=== PATIENT | female | born 1970 | race Caucasian/White ===

== ENCOUNTER 2021-02-19 01:47 | Emergency (ER) | payer MEDICAID ==
[~2021-02-19] VITALS: Ht 157.5 cm; Wt 113.9 kg
[2021-02-19 02:03] VITALS: BP_SYST 118
[2021-02-19] MEDS ORDERED: MORPHINE 4 MG INJ. 4 MG/ML VIAL IVP ONE (02:30)
[2021-02-19 02:49] LABS: BASOPHILS # (AUTO) 0.1 K/uL (0.0-0.2); BASOPHILS % (AUTO) 0.5 % (0.0-2.0); EOSINOPHILS # (AUTO) 0.1 K/uL (0.0-0.4); EOSINOPHILS % (AUTO) 0.7 % (0.0-4.0); HEMATOCRIT 43.6 % (36-48); HEMOGLOBIN 14.2 g/dL (12.0-16.0); LYMPHOCYTES # (AUTO) 3.4 K/uL (1.0-5.5); LYMPHOCYTES % (AUTO) 25.7 % (20.5-51.5); MEAN CORPUSCULAR HEMOGLOBIN 28 pg (27-31); MEAN CORPUSCULAR HGB CONC 33 % (32-36); MEAN CORPUSCULAR VOLUME 85 fL (79.0-98.0); MONOCYTES # (AUTO) 0.9 K/uL (0.0-1.0); MONOCYTES % (AUTO) 6.8 % (1.7-9.3); NEUTROPHILS # (AUTO) 8.7 K/uL (1.8-7.7); NEUTROPHILS % (AUTO) 66.3 % (40.0-70.0); PLATELET COUNT (AUTO) 204 K/uL (130-430); RED BLOOD CELL COUNT(AUTO) 5.12 MIL/uL (4.2-6.2); RED CELL DISTRIBUTION WIDTH 14.4 % (9.0-15.0); WHITE BLOOD COUNT (AUTO) 13.2 K/uL (4.8-10.8)
[2021-02-19 03:01] LABS: CALCIUM 8.8 mg/dL (8.4-11.0); CREATININE 0.72 mg/dL (0.55-1.30); POTASSIUM 3.4 mmol/L (3.5-5.1)
[2021-02-19 03:12] LABS: ALBUMIN 3.1 g/dL (3.4-4.8); TOTAL BILIRUBIN 0.5 mg/dL (0.0-1.0)
[2021-02-19] MEDS ORDERED: HYDR-3917 PO (05:16)
[2021-02-19] MEDS ORDERED: AMOX-426 PO (05:16)
[2021-02-19 05:33] VITALS: BP_SYST 118
== END 2021-02-19 05:38 | disposition home or self-care (01) ==
LOC: SED 01:47
DX: K57.92 Diverticulitis of intestine, part unspecified, without perforation or abscess without bleeding (principal); Z79.899 Other long term (current) drug therapy
CPT/HCPCS: 36415; 74176; 76376; 80053; 83690; 84702; 85025; 96374; 99284; J2270

== ENCOUNTER 2021-04-03 20:32 | Emergency (ER) | payer MEDICAID, SELFPAY ==
[~2021-04-03] VITALS: Ht 162.6 cm; Wt 113.4 kg
[~2021-04-03 20:32] MED LIST: AMOX-426 PO; HYDR-3917 PO
[2021-04-03 20:58] VITALS: BP_SYST 152
--- NOTE | 2021-04-03 20:58 | NUR ---
Patient to ER TENT for evaluation. WILL ASSUME CARE OF PATIENT
--- NOTE | 2021-04-03 21:07 | NUR ---
ER at bedside examining patient.
--- NOTE | 2021-04-03 21:15 | NUR ---
Pt BIB family to ED C/O fever cough congestion sore throat the last 2 days patient has not been vaccinated against against Covid she has history of COPD has not been tested for Covid before no chest pain
[2021-04-03] MEDS ORDERED: ALBU8.5H8 INH (22:06)
[2021-04-03] MEDS ORDERED: ZIT250 PO (22:06)
[2021-04-03] MEDS ORDERED: PSEU30TA36 PO (22:06)
[2021-04-03] MEDS ORDERED: PRED20TA PO (22:06)
[2021-04-03 22:22] VITALS: BP_SYST 146
--- NOTE | 2021-04-03 22:22 | NUR ---
Patient given written and verbal discharge instructions and verbalizes understanding. ER MD discussed with patient the results and treatment provided. Patient in stable condition. ID arm band removed. Patient educated on pain management and to follow up with PMD. Pain Scale 0/10 Opportunity for questions provided and answered.
== END 2021-04-03 22:22 | disposition home or self-care (01) ==
LOC: SED 20:32
DX: J40 Bronchitis, not specified as acute or chronic (principal); Z20.822 Contact with and (suspected) exposure to COVID-19
CPT/HCPCS: 36415; 71045; 86710; 99284

== ENCOUNTER 2021-04-25 13:16 | Emergency (ER) | payer MEDICAID, SELFPAY ==
[~2021-04-25] VITALS: Ht 162.6 cm; Wt 113.9 kg
[~2021-04-25 13:16] MED LIST changes: +ALBU8.5H8 INH; +PRED20TA PO; +PSEU30TA36 PO; +ZIT250 PO
[2021-04-25 13:50] VITALS: BP_SYST 151
--- NOTE | 2021-04-25 13:50 | NUR ---
Patient to ER tent for evaluation.
--- NOTE | 2021-04-25 13:50 | NUR ---
pt. camr in with c/o congestion, cough and body aches 10/10, states productive cough with green sputum
--- NOTE | 2021-04-25 16:20 | NUR ---
ER at bedside examining patient in tent.
[2021-04-25] MEDS ORDERED: PRED20TA PO (17:07)
[2021-04-25] MEDS ORDERED: IBUP-1969 PO (17:08)
[2021-04-25] MEDS ORDERED: TRAM50TA2 PO (17:08)
--- NOTE | 2021-04-25 17:23 | NUR ---
Patient given written and verbal discharge instructions and verbalizes understanding. ER Dr. Kauffman discussed with patient the results and treatment provided. Patient in stable condition. ID arm band removed. Rx of Ibuprofen, prednisone, anf tyelenol given. Patient educated on pain management and to follow up with PMD. Pain Scale 7. Opportunity for questions provided and answered. Medication side effect fact sheet provided.
[2021-04-25 17:25] VITALS: BP_SYST 139
== END 2021-04-25 17:25 | disposition home or self-care (01) ==
LOC: SED 13:16
DX: U07.1 COVID-19 (principal); J12.82 Pneumonia due to coronavirus disease 2019; J44.9 Chronic obstructive pulmonary disease, unspecified; E11.9 Type 2 diabetes mellitus without complications; Z79.899 Other long term (current) drug therapy
CPT/HCPCS: 36415; 71045; 86710; 99284

== ENCOUNTER 2021-09-08 11:57 | Emergency (ER) | payer MEDICAID ==
[~2021-09-08] VITALS: Ht 162.6 cm; Wt 117.9 kg
[~2021-09-08 11:57] MED LIST changes: +IBUP-1969 PO; +TRAM50TA2 PO
[2021-09-08 12:07] VITALS: BP_SYST 141
[2021-09-08 13:58] LABS: BASOPHILS # (AUTO) 0.1 K/uL (0.0-0.2); BASOPHILS % (AUTO) 0.7 % (0.0-2.0); EOSINOPHILS # (AUTO) 0.1 K/uL (0.0-0.4); EOSINOPHILS % (AUTO) 0.7 % (0.0-4.0); HEMATOCRIT 45.7 % (36-48); HEMOGLOBIN 15.1 g/dL (12.0-16.0); LYMPHOCYTES # (AUTO) 3.2 K/uL (1.0-5.5); LYMPHOCYTES % (AUTO) 30.6 % (20.5-51.5); MEAN CORPUSCULAR HEMOGLOBIN 27 pg (27-31); MEAN CORPUSCULAR HGB CONC 33 % (32-36); MEAN CORPUSCULAR VOLUME 83 fL (79.0-98.0); MONOCYTES # (AUTO) 0.6 K/uL (0.0-1.0); MONOCYTES % (AUTO) 6.1 % (1.7-9.3); NEUTROPHILS # (AUTO) 6.5 K/uL (1.8-7.7); NEUTROPHILS % (AUTO) 61.9 % (40.0-70.0); PLATELET COUNT (AUTO) 192 K/uL (130-430); RED BLOOD CELL COUNT(AUTO) 5.53 MIL/uL (4.2-6.2); RED CELL DISTRIBUTION WIDTH 15.1 % (9.0-15.0); WHITE BLOOD COUNT (AUTO) 10.5 K/uL (4.8-10.8)
[2021-09-08 14:22] LABS: CALCIUM 8.1 mg/dL (8.4-11.0); CREATININE 0.87 mg/dL (0.55-1.30); POTASSIUM 3.8 mmol/L (3.5-5.1)
[2021-09-08 14:32] LABS: ALBUMIN 3.1 g/dL (3.4-4.8); TOTAL BILIRUBIN 0.1 mg/dL (0.0-1.0)
[2021-09-08 14:55] VITALS: BP_SYST 138
== END 2021-09-08 14:55 | disposition home or self-care (01) ==
LOC: SED 11:57
DX: E11.65 Type 2 diabetes mellitus with hyperglycemia (principal); I10 Essential (primary) hypertension; J44.9 Chronic obstructive pulmonary disease, unspecified; Z79.899 Other long term (current) drug therapy
CPT/HCPCS: 36415; 80053; 82962; 83036; 85025; 99283

== ENCOUNTER 2021-10-02 07:44 | Emergency (ER) | payer MEDICAID ==
[~2021-10-02] VITALS: Ht 162.6 cm; Wt 113.9 kg
[2021-10-02 07:45] VITALS: BP_SYST 154
--- NOTE | 2021-10-02 07:50 | NUR ---
BROUGHT BACK TO BED #7 AND TRIAGED.REPORT GIVEN TO ALYSIA
--- NOTE | 2021-10-02 08:11 | NUR ---
Pt present to ED with complaint of L shoulder pain that radiates to the neck rated 10/10. ED physician seen pt at bedside
[2021-10-02] MEDS ORDERED: KETOROLAC TROMETHAMINE 30 MG VIAL IM ONE (08:15)
[2021-10-02] MEDS ORDERED: methocarbamoL 500 MG TABLET PO ONE (08:15)
[2021-10-02] MEDS ORDERED: LIDOCAINE PATCH 5% 1 EA TP ONE (08:15)
[2021-10-02] MEDS ORDERED: MORPHINE 4 MG INJ. 4 MG/ML VIAL IM ONE (09:00)
--- NOTE | 2021-10-02 09:03 | NUR ---
Pt given left arm placed in a arm sling per ED physician orders.
--- NOTE | 2021-10-02 09:36 | NUR ---
Pt states that she would like to leave AMA. Pt signed AMA form. Pt self ambulated out of ED
[2021-10-02 09:39] LABS: BASOPHILS # (AUTO) 0.1 K/uL (0.0-0.2); BASOPHILS % (AUTO) 0.5 % (0.0-2.0); EOSINOPHILS # (AUTO) 0.1 K/uL (0.0-0.4); EOSINOPHILS % (AUTO) 0.8 % (0.0-4.0); HEMATOCRIT 43.4 % (36-48); HEMOGLOBIN 14.4 g/dL (12.0-16.0); LYMPHOCYTES # (AUTO) 2.7 K/uL (1.0-5.5); LYMPHOCYTES % (AUTO) 25.8 % (20.5-51.5); MEAN CORPUSCULAR HEMOGLOBIN 28 pg (27-31); MEAN CORPUSCULAR HGB CONC 33 % (32-36); MEAN CORPUSCULAR VOLUME 84 fL (79.0-98.0); MONOCYTES # (AUTO) 0.7 K/uL (0.0-1.0); MONOCYTES % (AUTO) 6.6 % (1.7-9.3); NEUTROPHILS % (AUTO) 66.3 % (40.0-70.0); PLATELET COUNT (AUTO) 181 K/uL (130-430); RED CELL DISTRIBUTION WIDTH 15.2 % (9.0-15.0); WHITE BLOOD COUNT (AUTO) 10.5 K/uL (4.8-10.8)
[2021-10-02 09:53] LABS: CALCIUM 8.2 mg/dL (8.4-11.0); CREATININE 0.73 mg/dL (0.55-1.30); POTASSIUM 3.3 mmol/L (3.5-5.1)
[2021-10-02 09:59] LABS: ALBUMIN 2.9 g/dL (3.4-4.8); TOTAL BILIRUBIN 0.2 mg/dL (0.0-1.0)
== END 2021-10-02 09:36 | disposition left against medical advice (07) ==
LOC: SED 07:44
DX: M19.012 Primary osteoarthritis, left shoulder (principal); R94.31 Abnormal electrocardiogram [ECG] [EKG]; I10 Essential (primary) hypertension; E11.9 Type 2 diabetes mellitus without complications; J44.9 Chronic obstructive pulmonary disease, unspecified; F17.200 Nicotine dependence, unspecified, uncomplicated; Z71.6 Tobacco abuse counseling
CPT/HCPCS: 36415; 73030; 80053; 84484; 85025; 93005; 96372; 99285; J1885; J2270

== ENCOUNTER 2021-11-30 21:25 | Inpatient (IN) | payer MEDICAID ==
[~2021-11-30] VITALS: Ht 162.6 cm; Wt 121.1 kg
[2021-11-30 21:54] VITALS: BP_SYST 160
[2021-11-30] MEDS ORDERED: ASPIRIN 81 MG TAB.CHEW PO ONE (22:15)
[2021-11-30 22:41] LABS: BASOPHILS # (AUTO) 0.3 K/uL (0.0-0.2); BASOPHILS % (AUTO) 2.4 % (0.0-2.0); EOSINOPHILS # (AUTO) 0.1 K/uL (0.0-0.4); EOSINOPHILS % (AUTO) 0.6 % (0.0-4.0); HEMATOCRIT 43.7 % (36-48); HEMOGLOBIN 14.8 g/dL (12.0-16.0); LYMPHOCYTES # (AUTO) 2.9 K/uL (1.0-5.5); MEAN CORPUSCULAR HEMOGLOBIN 29 pg (27-31); MEAN CORPUSCULAR HGB CONC 34 % (32-36); MEAN CORPUSCULAR VOLUME 84 fL (79.0-98.0); MONOCYTES # (AUTO) 0.5 K/uL (0.0-1.0); NEUTROPHILS # (AUTO) 6.9 K/uL (1.8-7.7); PLATELET COUNT (AUTO) 198 K/uL (130-430); RED BLOOD CELL COUNT(AUTO) 5.19 MIL/uL (4.2-6.2); RED CELL DISTRIBUTION WIDTH 15.3 % (9.0-15.0); WHITE BLOOD COUNT (AUTO) 10.6 K/uL (4.8-10.8)
[2021-11-30] MEDS ORDERED: ASPIRIN 81 MG TAB.CHEW ONE (22:49)
[2021-12-01 01:21] LABS: ANION GAP 7 (5-15); CALCIUM 8.5 mg/dL (8.4-11.0); CHLORIDE 104 mmol/L (98-107); CREATININE 0.74 mg/dL (0.55-1.30); GLUCOSE 191 mg/dL (70-99); POTASSIUM 3.3 mmol/L (3.5-5.1); SODIUM SERUM 142 mmol/L (136-145); UREA NITROGEN, BLOOD 10 mg/dL (8-21)
[2021-12-01 01:26] LABS: GFR AFRICAN AMERICAN 106 mL/min (>90)
[2021-12-01 01:30] LABS: ALANINE AMINOTRANSFERASE 22 U/L (12-78); ALBUMIN 3.1 g/dL (3.4-4.8); ASPARTATE AMINOTRANSFERASE 14 U/L (10-37); TOTAL BILIRUBIN 0.2 mg/dL (0.0-1.0)
[2021-12-01 02:12] LABS: INR 0.9 (0.8-1.2); PROTHROMBIN TIME 9.6 SECS (9.5-12.5)
[2021-12-01 02:55] LABS: C-REACTIVE PROTEIN QUANT 2.8 mg/dL (0-0.5)
[2021-12-01] MEDS ORDERED: MORPHINE 4 MG INJ. 4 MG/ML VIAL IVP ONE ×2 (03:00→06:00)
[2021-12-01 06:00] VITALS: BP_SYST 145
[2021-12-01] MEDS ORDERED: FUROSEMIDE 40 MG/4 ML VIAL IVP ONE (06:00)
[2021-12-01] MEDS ORDERED: INSULIN REGULAR, HUMAN 100 UNITS/ML, 10 ML VIAL (humuLIN R) SUBCUT PRN (06:15)
[2021-12-01] MEDS ORDERED: DEXTROSE 50% JECT 50 ML DISP.SYRIN IVP PRN (06:15)
[2021-12-01] MEDS ORDERED: POTASSIUM CHLORIDE 20 MEQ TAB.PRT.SR PO ONE (06:30)
[2021-12-01] MEDS ORDERED: ALBUTEROL MDI INHALATION 8 GM INH INH PRN ×3 (07:15→07:30)
[2021-12-01] MEDS ORDERED: HYDROcodone/ACETAMIN 5-325 MG TAB (NORCO/ VICODIN) PO PRN (07:15)
[2021-12-01] MEDS ORDERED: NALOXONE HCL 0.4 MG/ML AMP (NARCAN) IVP PRN (07:15)
[2021-12-01] MEDS ORDERED: traMADol HCL HCL 50 MG TABLET (ULTRAM) PO PRN (07:15)
[2021-12-01] MEDS ORDERED: ACETAMINOPHEN 325 MG TABLET PO PRN (07:45)
[2021-12-01] MEDS ORDERED: PREGABALIN 25 MG CAPSULE (LYRICA) PO SCH (09:00)
[2021-12-01] MEDS ORDERED: ENOXAPARIN SODIUM 40 MG/0.4 ML SYRINGE SUBCUT SCH (21:00)
== END 2021-12-01 23:38 | disposition left against medical advice (07) | DRG 137 ==
LOC: SED 21:25 → STU 12-01 06:12
PROVIDERS: ADMIT Internal Medicine; ATTEND Internal Medicine
DX: U07.1 COVID-19 (principal); E44.1 Mild protein-calorie malnutrition; I27.81 Cor pulmonale (chronic); E11.21 Type 2 diabetes mellitus with diabetic nephropathy; E87.6 Hypokalemia; Z53.29 Procedure and treatment not carried out because of patient's decision for other reasons; E66.01 Morbid (severe) obesity due to excess calories; Z68.42 Body mass index [BMI] 45.0-49.9, adult; Z91.14 Patient's other noncompliance with medication regimen; Z79.899 Other long term (current) drug therapy; Z79.1 Long term (current) use of non-steroidal anti-inflammatories (NSAID)
CPT/HCPCS: 36415; 71045; 80053; 82962; 83036; 83615; 83880; 84484; 85025; 85379; 85384; 85610-TC; 85730-TC; 86140; 87040; 93005; 93970; 96374; 96375; 99285; G0378; J1940; J2270

== ENCOUNTER 2022-10-07 02:05 | Inpatient (IN) | payer MEDICAID ==
[~2022-10-07] VITALS: Ht 162.6 cm; Wt 118.4 kg
[2022-10-07 02:21] VITALS: BP_SYST 154
[2022-10-07] MEDS ORDERED: NACL 0.9% 1,000 ML IV ONE (02:30)
[2022-10-07] MEDS ORDERED: MORPHINE 4 MG INJ. 4 MG/ML VIAL IVP ONE (02:30)
[2022-10-07] MEDS ORDERED: ONDANSETRON HCL 4 MG/2 ML VIAL IVP ONE (02:30)
[2022-10-07 03:01] LABS: BASOPHILS # (AUTO) 0.1 K/uL (0.0-0.2); BASOPHILS % (AUTO) 0.4 % (0.0-2.0); EOSINOPHILS % (AUTO) 0.1 % (0.0-4.0); HEMATOCRIT 48.9 % (36-48); HEMOGLOBIN 15.8 g/dL (12.0-16.0); LYMPHOCYTES # (AUTO) 1.5 K/uL (1.0-5.5); LYMPHOCYTES % (AUTO) 9.9 % (20.5-51.5); MEAN CORPUSCULAR HEMOGLOBIN 27 pg (27-31); MEAN CORPUSCULAR HGB CONC 32 % (32-36); MEAN CORPUSCULAR VOLUME 84 fL (79.0-98.0); MONOCYTES % (AUTO) 6.8 % (1.7-9.3); NEUTROPHILS # (AUTO) 12.6 K/uL (1.8-7.7); NEUTROPHILS % (AUTO) 82.8 % (40.0-70.0); PLATELET COUNT (AUTO) 199 K/uL (130-430); RED CELL DISTRIBUTION WIDTH 15.4 % (9.0-15.0); WHITE BLOOD COUNT (AUTO) 15.3 K/uL (4.8-10.8)
[2022-10-07 03:27] LABS: CREATININE 0.8 mg/dL (0.55-1.30)
[2022-10-07 03:36] LABS: ALBUMIN 3.1 g/dL (3.4-4.8)
[2022-10-07] MEDS ORDERED: D5/0.45 NS 500 ML IV ONE (09:45)
[2022-10-07 11:16] VITALS: BP_SYST 128
[2022-10-07] MEDS ORDERED: SEMA0.25 SQ (11:32)
[2022-10-07] MEDS ORDERED: LORazepam 2 MG/ML VIAL IVP PRN (12:15)
[2022-10-07] MEDS ORDERED: NALOXONE HCL 0.4 MG/ML AMP (NARCAN) IVP PRN ×3 (12:15)
[2022-10-07] MEDS ORDERED: HYDROcodone/ACETAMIN 5-325 MG TAB (NORCO/ VICODIN) PO PRN (12:15)
[2022-10-07] MEDS ORDERED: ONDANSETRON HCL 4 MG/2 ML VIAL IVP PRN (12:15)
[2022-10-07] MEDS ORDERED: ACETAMINOPHEN 325 MG TABLET PO PRN (12:30)
[2022-10-07] MEDS ORDERED: POTASSIUM CHLORIDE 20 MEQ TAB.PRT.SR PO ONE (13:00)
[2022-10-07] MEDS: ACETAMINOPHEN 325 MG TABLET PO PRN (13:18)
[2022-10-07 14:33] VITALS: BP_SYST 131
[2022-10-07 16:48] LABS: BILIRUBIN,URINE 1+ (NEGATIVE); BLOOD, URINE 3+ (NEGATIVE); COLOR,URINE YELLOW (YELLOW); GLUCOSE,URINE TRACE (NEGATIVE); KETONES,URINE NEGATIVE (NEGATIVE); LEUKOCYTE ESTERASE ,URINE TRACE (NEGATIVE); NITRITE, URINE POSITIVE (NEGATIVE); PROTEIN URINE 3+ (NEGATIVE); UROBILINOGEN,URINE 0.2 (0.2-1.0)
[2022-10-07 16:49] LABS: CLARITY/URINE HAZY (CLEAR)
[2022-10-07 17:01] LABS: BACTERIA,URINE FEW /HPF (None Seen); MUCUS,URINE None Seen /LPF (None Seen); RBC,URINE 80-100 /HPF (0-3); WBC,URINE 20-50 /HPF (0-3)
[2022-10-07] MEDS: metroNIDAZOLE 500 mg/NS 100 ML IV SCH ×2 (17:04→23:22)
[2022-10-07 20:00] VITALS: BP_SYST 125
[2022-10-07] MEDS ORDERED: DEXTROSE 50% JECT 50 ML DISP.SYRIN IVP PRN (23:00)
[2022-10-07] MEDS ORDERED: GLUCOSE (DEXTROSE) ORAL GEL -Adults PO PRN (23:00)
[2022-10-07] MEDS ORDERED: D5W 1,000 ML IV PRN (23:00)
[2022-10-07] MEDS: MORPHINE 2 MG/ML INJ. SYRINGE IVP PRN (23:27)
[2022-10-08 02:04] VITALS: BP_SYST 118
[2022-10-08] MEDS: metroNIDAZOLE 500 mg/NS 100 ML IV SCH ×3 (06:25→21:30)
[2022-10-08 08:00] VITALS: BP_SYST 131
[2022-10-08] MEDS: HYDROcodone/ACETAMIN 10-325 MG TAB PO PRN (08:04)
[2022-10-08 08:53] LABS: BASOPHILS % (AUTO) 0.4 % (0.0-2.0); HEMATOCRIT 46.6 % (36-48); HEMOGLOBIN 15.1 g/dL (12.0-16.0); LYMPHOCYTES # (AUTO) 1.6 K/uL (1.0-5.5); LYMPHOCYTES % (AUTO) 20.8 % (20.5-51.5); MEAN CORPUSCULAR HEMOGLOBIN 28 pg (27-31); MEAN CORPUSCULAR HGB CONC 33 % (32-36); MEAN CORPUSCULAR VOLUME 85 fL (79.0-98.0); MONOCYTES # (AUTO) 0.7 K/uL (0.0-1.0); MONOCYTES % (AUTO) 8.9 % (1.7-9.3); NEUTROPHILS # (AUTO) 5.2 K/uL (1.8-7.7); NEUTROPHILS % (AUTO) 69.9 % (40.0-70.0); PLATELET COUNT (AUTO) 145 K/uL (130-430); RED BLOOD CELL COUNT(AUTO) 5.49 MIL/uL (4.2-6.2); RED CELL DISTRIBUTION WIDTH 14.9 % (9.0-15.0); WHITE BLOOD COUNT (AUTO) 7.5 K/uL (4.8-10.8)
[2022-10-08 08:57] LABS: CREATININE 0.86 mg/dL (0.55-1.30)
[2022-10-08 09:08] LABS: C-REACTIVE PROTEIN QUANT 141.7 mg/dL (0-0.5)
[2022-10-08 09:10] LABS: ERYTHROCYTE SEDIMENTATION RATE 27 MM/HR (0-20)
[2022-10-08] MEDS ORDERED: KCL 40 mEq in 100 mL (PREMIX) 100 ML IV ONE (10:15)
[2022-10-08] MEDS ORDERED: POTASSIUM CHLORIDE 20 mEq in 100 mL (PREMIX) 100 ML x 2 doses IV SCH (10:30)
[2022-10-08 12:00] VITALS: BP_SYST 128
[2022-10-08] MEDS ORDERED: POTASSIUM CHLORIDE 40 MEQ, LIDOCAINE JECT 2% PF 100 MG 75 MG in NS 250 ML IV ONE (13:30)
[2022-10-08 16:00] VITALS: BP_SYST 155
[2022-10-08 20:00] VITALS: BP_SYST 120
[2022-10-08] MEDS: INSULIN REGULAR, HUMAN 100 UNITS/ML, 3 ML VIAL (humuLIN R) SUBCUT PRN (21:29)
[2022-10-08] MEDS: ACETAMINOPHEN 325 MG TABLET PO PRN (21:31)
[2022-10-09 02:14] VITALS: BP_SYST 136
[2022-10-09] MEDS: metroNIDAZOLE 500 mg/NS 100 ML IV SCH ×3 (05:12→20:51)
[2022-10-09 06:33] LABS: BASOPHILS % (AUTO) 0.2 % (0.0-2.0); EOSINOPHILS % (AUTO) 0.6 % (0.0-4.0); HEMOGLOBIN 14.7 g/dL (12.0-16.0); LYMPHOCYTES # (AUTO) 1.8 K/uL (1.0-5.5); LYMPHOCYTES % (AUTO) 23.9 % (20.5-51.5); MEAN CORPUSCULAR HEMOGLOBIN 28 pg (27-31); MEAN CORPUSCULAR HGB CONC 33 % (32-36); MEAN CORPUSCULAR VOLUME 85 fL (79.0-98.0); MONOCYTES # (AUTO) 0.6 K/uL (0.0-1.0); MONOCYTES % (AUTO) 7.6 % (1.7-9.3); NEUTROPHILS # (AUTO) 5.3 K/uL (1.8-7.7); NEUTROPHILS % (AUTO) 67.7 % (40.0-70.0); PLATELET COUNT (AUTO) 138 K/uL (130-430); RED BLOOD CELL COUNT(AUTO) 5.31 MIL/uL (4.2-6.2); RED CELL DISTRIBUTION WIDTH 15.9 % (9.0-15.0); WHITE BLOOD COUNT (AUTO) 7.7 K/uL (4.8-10.8)
[2022-10-09] MEDS: INSULIN REGULAR, HUMAN 100 UNITS/ML, 3 ML VIAL (humuLIN R) SUBCUT PRN (06:44)
[2022-10-09 06:53] LABS: ERYTHROCYTE SEDIMENTATION RATE 29 MM/HR (0-20)
[2022-10-09 07:01] LABS: ALBUMIN 2.3 g/dL (3.4-4.8); C-REACTIVE PROTEIN QUANT 34.7 mg/dL (0-0.5); CALCIUM 8.4 mg/dL (8.4-11.0); CREATININE 0.81 mg/dL (0.55-1.30); PHOSPHORUS 2.5 mg/dL (2.7-4.5); TOTAL BILIRUBIN 0.4 mg/dL (0.0-1.0)
[2022-10-09 08:00] VITALS: BP_SYST 123
[2022-10-09] MEDS ORDERED: POTASSIUM CHLORIDE 20 MEQ TAB.PRT.SR PO ONE (10:30)
[2022-10-09 16:00] VITALS: BP_SYST 120
[2022-10-09] MEDS: MORPHINE 2 MG/ML INJ. SYRINGE IVP PRN (17:24)
[2022-10-09 20:00] VITALS: BP_SYST 134
[2022-10-09] MEDS: ACETAMINOPHEN 325 MG TABLET PO PRN (20:53)
[2022-10-10] VITALS: BP_SYST 138
[2022-10-10] MEDS: metroNIDAZOLE 500 mg/NS 100 ML IV SCH (06:04)
[2022-10-10] MEDS: HYDROcodone/ACETAMIN 10-325 MG TAB PO PRN (06:19)
[2022-10-10 07:05] LABS: BASOPHILS % (AUTO) 0.3 % (0.0-2.0); EOSINOPHILS % (AUTO) 0.5 % (0.0-4.0); HEMATOCRIT 42.7 % (36-48); LYMPHOCYTES % (AUTO) 31.9 % (20.5-51.5); MEAN CORPUSCULAR HEMOGLOBIN 28 pg (27-31); MEAN CORPUSCULAR HGB CONC 33 % (32-36); MEAN CORPUSCULAR VOLUME 85 fL (79.0-98.0); MONOCYTES # (AUTO) 0.4 K/uL (0.0-1.0); MONOCYTES % (AUTO) 6.8 % (1.7-9.3); NEUTROPHILS # (AUTO) 3.8 K/uL (1.8-7.7); NEUTROPHILS % (AUTO) 60.5 % (40.0-70.0); PLATELET COUNT (AUTO) 150 K/uL (130-430); RED BLOOD CELL COUNT(AUTO) 5.05 MIL/uL (4.2-6.2); RED CELL DISTRIBUTION WIDTH 15.1 % (9.0-15.0); WHITE BLOOD COUNT (AUTO) 6.3 K/uL (4.8-10.8)
[2022-10-10 07:51] LABS: C-REACTIVE PROTEIN QUANT 11.3 mg/dL (0-0.5); CALCIUM 8.1 mg/dL (8.4-11.0); CREATININE 0.7 mg/dL (0.55-1.30)
[2022-10-10 08:00] VITALS: BP_SYST 136
[2022-10-10 08:24] LABS: ERYTHROCYTE SEDIMENTATION RATE 29 MM/HR (0-20)
[2022-10-10] MEDS ORDERED: SULF1TAB48 PO (11:32)
[2022-10-10 12:05] VITALS: BP_SYST 132
[2022-10-10 13:45] VITALS: BP_SYST 135
[2022-10-12] MEDS ORDERED: NON-FORMULARY MEDICATION (Semaglutide (Ozempic) 0.5 MG) SQ SCH (06:00)
== END 2022-10-10 12:23 | disposition home or self-care (01) | DRG 720 ==
LOC: SED 02:05 → SMU 09:47
PROVIDERS: ADMIT Preventive Medicine Preventive Medicine/Occupational Environmental Medicine; ATTEND Preventive Medicine Preventive Medicine/Occupational Environmental Medicine
DX: A41.9 Sepsis, unspecified organism (principal); E43 Unspecified severe protein-calorie malnutrition; E83.39 Other disorders of phosphorus metabolism; E83.51 Hypocalcemia; E88.09 Other disorders of plasma-protein metabolism, not elsewhere classified; E11.65 Type 2 diabetes mellitus with hyperglycemia; E66.9 Obesity, unspecified; E83.52 Hypercalcemia; K52.9 Noninfective gastroenteritis and colitis, unspecified; B96.89 Other specified bacterial agents as the cause of diseases classified elsewhere; E87.6 Hypokalemia; N39.0 Urinary tract infection, site not specified; J44.9 Chronic obstructive pulmonary disease, unspecified; I10 Essential (primary) hypertension; E78.5 Hyperlipidemia, unspecified; Z90.49 Acquired absence of other specified parts of digestive tract; Z98.891 History of uterine scar from previous surgery; Z90.710 Acquired absence of both cervix and uterus; Z68.41 Body mass index [BMI] 40.0-44.9, adult
CPT/HCPCS: 36415; 71045; 76376; 80048; 80053; 81000; 83605; 83690; 83735; 84100; 85025; 85651-TC; 86140; 87040; 87045-TC; 87046; 87086; 87177; 87230-TC; 96374; 96375; 99285; J1815; J1956; J2270; J2405; J3480; J3490; J7050

== ENCOUNTER 2022-11-10 02:45 | Emergency (ER) | payer MEDICAID ==
[~2022-11-10] VITALS: Ht 160 cm; Wt 113.9 kg
[~2022-11-10 02:45] MED LIST changes: -ALBU8.5H8 INH; -AMOX-426 PO; -HYDR-3917 PO; -IBUP-1969 PO; -PRED20TA PO; -PSEU30TA36 PO; +SEMA0.25 SQ; +SULF1TAB48 PO; -TRAM50TA2 PO; -ZIT250 PO
--- NOTE | 2022-11-10 03:03 | NUR ---
PATIENT PRESENTS WITH CHEST PAIN FOR TWO DAYS, FEVER, BODY ACHE, STATES SHE WAS AROUND A FRIEND WHO IS ALSO SICK
--- NOTE | 2022-11-10 03:04 | NUR ---
REPORT GIVEN TO JAMES JUARES AT THIS TIME, PATIENT PLACED IN ED BED 4
[2022-11-10 03:05] VITALS: BP_SYST 167; PULSE 101; RESP 20; TEMP 98.4; O2SAT 96
--- NOTE | 2022-11-10 03:25 | NUR ---
PT BIB SELF FROM STREET C/O CHEST PAIN X 2 DAYS 12/07, SOB, AND FEVER. PT IS AFIBRILLE AT THIS TIME. PT HX OF COPD, CATARACT SX, HOMELESSNESS, COLITIS AND GALL BLADDER REMOVAL. PT RESTING COMFORTABLY IN BED WITH RAILS UP VSS
[2022-11-10] MEDS ORDERED: KETOROLAC TROMETHAMINE 30 MG VIAL IM ONE (03:30)
--- NOTE | 2022-11-10 03:45 | NUR ---
PT SLEEPING O2 SAT DROPPED TO 88. PLACED PACIENT ON 2L NC. PT VSS RESTING COMFORTABLY IN BED WITH RAILS UP
[2022-11-10 04:37] LABS: BASOPHILS % (AUTO) 0.4 % (0.0-2.0); EOSINOPHILS % (AUTO) 0.4 % (0.0-4.0); HEMATOCRIT 45.9 % (36-48); HEMOGLOBIN 14.7 g/dL (12.0-16.0); LYMPHOCYTES # (AUTO) 1.5 K/uL (1.0-5.5); LYMPHOCYTES % (AUTO) 15.1 % (20.5-51.5); MEAN CORPUSCULAR HEMOGLOBIN 27 pg (27-31); MEAN CORPUSCULAR HGB CONC 32 % (32-36); MEAN CORPUSCULAR VOLUME 85 fL (79.0-98.0); MONOCYTES # (AUTO) 0.8 K/uL (0.0-1.0); MONOCYTES % (AUTO) 7.9 % (1.7-9.3); NEUTROPHILS # (AUTO) 7.7 K/uL (1.8-7.7); NEUTROPHILS % (AUTO) 76.2 % (40.0-70.0); PLATELET COUNT (AUTO) 156 K/uL (130-430); RED BLOOD CELL COUNT(AUTO) 5.42 MIL/uL (4.2-6.2); RED CELL DISTRIBUTION WIDTH 15.5 % (9.0-15.0); WHITE BLOOD COUNT (AUTO) 10.1 K/uL (4.8-10.8)
[2022-11-10 05:00] LABS: ALANINE AMINOTRANSFERASE 23 U/L (12-78); ALBUMIN 3.1 g/dL (3.4-4.8); ANION GAP 12 (5-15); ASPARTATE AMINOTRANSFERASE 18 U/L (10-37); CALCIUM 8.1 mg/dL (8.4-11.0); CHLORIDE 101 mmol/L (98-107); CREATININE 0.79 mg/dL (0.55-1.30); GFR AFRICAN AMERICAN 98 mL/min (>90); GLUCOSE 124 mg/dL (74-106); TOTAL BILIRUBIN 0.7 mg/dL (0.0-1.0); UREA NITROGEN, BLOOD 7 mg/dL (8-21)
[2022-11-10] MEDS ORDERED: POTASSIUM CHLORIDE 20 MEQ TAB.PRT.SR PO ONE (05:30)
[2022-11-10] MEDS ORDERED: PRED20TA PO (05:32)
[2022-11-10] MEDS ORDERED: ACET-2634 PO (05:32)
[2022-11-10] MEDS ORDERED: AZIT-93 PO (05:32)
[2022-11-10] MEDS ORDERED: ALBMDI INH (05:32)
[2022-11-10] MEDS ORDERED: BENZ100C92 PO (05:32)
[2022-11-10 06:07] VITALS: BP_SYST 149; PULSE 102; RESP 18; TEMP 98.4; O2SAT 92
--- NOTE | 2022-11-10 06:08 | NUR ---
ER at bedside examining patient.
--- NOTE | 2022-11-10 06:09 | NUR ---
Patient given written and verbal discharge instructions and verbalizes understanding. ER MD discussed with patient the results and treatment provided. Patient in stable condition. ID arm band removed. IV catheter removed intact and dressing applied, no active bleeding. Rx of TYLENOL, VENTOLIN HFA, AZITHROMYCIN, BENSONATATE AND PREDNISONE given. Patient educated on COPD EXACERBATION and to follow up with PMD. Pain Scale 0. Opportunity for questions provided and answered. Medication side effect fact sheet provided.
== END 2022-11-10 06:09 | disposition home or self-care (01) ==
LOC: SED 02:45
DX: J44.1 Chronic obstructive pulmonary disease with (acute) exacerbation (principal); E87.6 Hypokalemia; R05.9 Cough, unspecified; R50.9 Fever, unspecified; M79.10 Myalgia, unspecified site; E11.9 Type 2 diabetes mellitus without complications; I10 Essential (primary) hypertension; Z79.899 Other long term (current) drug therapy; Z20.822 Contact with and (suspected) exposure to COVID-19
CPT/HCPCS: 99285; 71045; 87426; 80053; 82550; 83880; 85025; 84484; 36415; 93005; 96372; 87804 ×2; J1885